=== PATIENT | male | born 1985 | race Caucasian/White ===

== ENCOUNTER → 2020-10-13 14:49 | Outpatient (CLI) | payer OTHER, SELFPAY ==
[2020-10-13 15:00] LABS: Basophils % 0.4 % (0.1-2.0); Eosinophils # 0.1 K/mm3 (0.0-0.4); Eosinophils % 1.5 % (0.1-12.0); Hematocrit 48.7 % (42.0-52.0); Hemoglobin 16.6 g/dL (14.1-18.0); Lymphocytes # 1.9 K/mm3 (0.7-4.5); Lymphocytes % 19.8 % (10-50); Mean Corpuscular HGB Conc 34.2 g/dL (31.8-35.4); Mean Corpuscular Hemoglobin 32.7 pg (27.0-31.2); Mean Corpuscular Volume 95.8 fl (80-94); Mean Platelet Volume 8.9 fl (7.4-10.4); Monocytes # 0.6 K/mm3 (0.1-1.0); Monocytes % 6.6 % (1.7-9.3); Neutrophils # 6.8 K/mm3 (1.8-7.8); Neutrophils % 71.8 % (37.0-80.0); Platelet Count 217 K/mm3 (142-424); Red Blood Count 5.08 M/mm3 (4.60-6.20); White Blood Count 9.4 K/mm3 (4.8-10.8)
[2020-10-13 15:09] LABS: Alanine Aminotransferase 22 U/L (12-78); Albumin Level 4.9 g/dl (3.5-5.0); Alkaline Phosphatase 73 U/L (38-126); Anion Gap 14.2 mEq/L (5-15); Aspartate Amino Transferase 37 U/L (17-59); Bilirubin,Total 0.4 mg/dl (0.2-1.3); Blood Urea Nitrogen 12 mg/dl (9-20); Calcium 9.6 mg/dl (8.4-10.2); Carbon Dioxide 25 mmol/L (22.0-30.0); Chloride 103 mmol/L (98-107); Estimated Glomerular Filt Rate 77 ml/min (>60); GFR (African American) 93 ML/MIN (>60); Globulin 2.5 g/dL (1.3-3.2); Glucose 100 mg/dl (74-100); HDL Cholesterol 66 mg/dl (40-60); Lipase 69 U/L (23-300); Potassium 4.2 mmoL/L (3.5-5.1); Sodium 138 mmol/L (136-145); Total Protein,Serum 7.4 g/dl (6.3-8.2)
[2020-10-13 15:12] LABS: Chol/HDL Ratio 2.5 (1-3.5); Cholesterol 162 mg/dl (140-200); Triglycerides 231 mg/dl (30-150); VLDL Cholesterol 46 mg/dL (0-40)
[2020-10-13 15:22] LABS: Direct LDL Cholesterol 58.43 mg/dL (100-129)
[2020-10-13 15:28] LABS: T4 (Thyroxine) 7.9 ug/dl (5.53-11.0)
[2020-10-13 15:42] LABS: Prostate Specific Ag Screen 0.8 ng/ml (0.0-4.0)
== END ==
PROVIDERS: Visit Provider Family Medicine
DX: S39.91XA Unspecified injury of abdomen, initial encounter (principal); Z12.5 Encounter for screening for malignant neoplasm of prostate; M54.5 Low back pain; R10.32 Left lower quadrant pain; N52.9 Male erectile dysfunction, unspecified
CPT/HCPCS: 80053; 80061; 83690; 84436; 84443; 85025; G0103

== ENCOUNTER → 2020-11-03 15:02 | Outpatient (CLI) | payer OTHER, SELFPAY ==
--- NOTE | 2020-11-03 15:08 | CT_ITS ---
PROCEDURE: CT ABDOMEN PELVIS WO CON CLINICAL INDICATION: LLQ pain COMPARISON: No exams were available for comparison TECHNIQUE: Axial images obtained with sagittal and coronal reformats. All CT scans at the facility use one or more dose reduction, viz: automated exposure control, ma/kV adjustment per patient size (including targeted exams where dose is matched to indication, i.e. head), or iterative reconstruction technique. FINDINGS: LOWER THORAX: No acute finding small nodular opacity is present in the region the right middle lobe at 7 x 4 mm and may be within the minor fissure and may represent a small lymph node. ABDOMEN & PELVIS: The liver and spleen have an unremarkable unenhanced CT appearance. The pancreas, adrenal glands, and kidneys have unremarkable unenhanced appearance. No renal or ureteral calculi. Gallbladder is contracted. No evidence of appendicitis. No intestinal obstruction or free air. No evidence of diverticulitis. There is a small metallic/calcific density in the left lower quadrant etiology indeterminate. Multiple unopacified bowel loops in the abdomen or pelvis which could obscure or mimic pathology. If symptoms persist, consider repeat exam with IV and oral contrast. No acute bony findings. IMPRESSION: 1. No acute finding. 2. Multiple unopacified bowel loops in the abdomen or pelvis which could obscure or mimic pathology. If symptoms persist, consider repeat exam with IV and oral contrast. Dictated by: John Henley MD 11/03/2020 15:33 John Henley MD in [place] 11/03/2020 15:33
== END ==
PROVIDERS: PCP Nurse Practitioner Family; Visit Provider Family Medicine
DX: R10.32 Left lower quadrant pain (principal)
CPT/HCPCS: 74176

== ENCOUNTER 2022-11-11 10:36 | Emergency (ER) | payer SELFPAY ==
--- NOTE | 2022-11-11 10:43 | XR_ITS ---
PROCEDURE INFORMATION: Exam: XR Left Ankle Exam date and time: 11/11/2022 11:02 AM Age: 37 years old Clinical indication: Injury or trauma; Fall; Blunt trauma; Lower leg; Left TECHNIQUE: Imaging protocol: Radiologic exam of the left ankle. Views: 3 or more views. COMPARISON: No relevant prior studies available. FINDINGS: Bones/joints: No visible fracture or dislocation. The mortise joint space is symmetric. Soft tissues: Prominent soft tissue edema overlying the lateral malleolus. IMPRESSION: 1. No visible fracture or dislocation. 2. Prominent soft tissue edema overlying the lateral malleolus.
--- NOTE | 2022-11-11 10:43 | XR_ITS ---
PROCEDURE INFORMATION: Exam: XR Left Tibia and Fibula Exam date and time: 11/11/2022 11:02 AM Age: 37 years old Clinical indication: Injury or trauma; Fall; Blunt trauma; Lower leg; Left TECHNIQUE: Imaging protocol: Radiologic exam of the left tibia and fibula. Views: 2 views. COMPARISON: No relevant prior studies available. FINDINGS: Bones/joints: No visible fracture or dislocation. Soft tissues: Normal. IMPRESSION: No visible fracture or dislocation.
--- NOTE | 2022-11-11 10:43 | XR_ITS ---
PROCEDURE INFORMATION: Exam: XR Left Foot Exam date and time: 11/11/2022 11:02 AM Age: 37 years old Clinical indication: Injury or trauma; Fall; Blunt trauma; Lower leg; Left TECHNIQUE: Imaging protocol: Radiologic exam of the left foot. Views: 3 or more views. COMPARISON: No relevant prior studies available. FINDINGS: Bones/joints: No visible fracture or dislocation. Soft tissues: Normal. IMPRESSION: No visible fracture or dislocation.
--- NOTE | 2022-11-11 10:45 | ECG_ITS ---
APPROVED REPORT Exam: Resting ECG HR:82 bpm ECG Measurements Heart Rate 82 AXES PA 148 P 61 QRSd 94 QRS 76 QT 327 T 52 QTc 366 Conclusion SINUS RHYTHM NORMAL ECG UNCONFIRMED REPORT Electronically signed by : Joshua Nicholson MD 11/12/2022 20:35:30
[2022-11-11 10:47] VITALS: BP 129/73; PULSE 81; RESP 16; O2SAT 98
[2022-11-11 11:00] VITALS: BP 129/79; PULSE 73; RESP 16; O2SAT 96
[2022-11-11 11:19] VITALS: BP 129/73; PULSE 82; RESP 20; TEMP 37.1; O2SAT 96; BMI 21.4
[2022-11-11 11:30] VITALS: BP 137/76; PULSE 70; O2SAT 99
--- NOTE | 2022-11-11 11:32 | PC.NURSE ---
sg rounding on pt
[2022-11-11 12:00] VITALS: BP 142/85; PULSE 82; RESP 16; O2SAT 99
--- NOTE | 2022-11-11 12:48 | PC.NURSE ---
Derick.Harper rounded on patient
--- NOTE | 2022-11-11 12:50 | [facility].EDGENADL ---
Discharge Plan Disposition Patient Disposition: Home, Self-Care Condition: Fair Prescriptions Prescriptions: No Action ciprofloxacin HCl [Cipro] 500 mg tablet 500 mg PO BID Qty: 20 0RF metronidazole [Flagyl] 500 mg tablet 500 mg PO TID Qty: 30 0RF sildenafil [Viagra] 100 mg tablet 100 mg PO DAILY PRN (Reason: sexual activity) Qty: 10 10RF Rx Instructions: administer 30 minutes to 4 hours before activity Referrals Follow up/Referrals: Provider,Referral, MD [Primary Care Provider] - See instructions Clinical Impressions Clinical Impression: Severe sprain of left ankle Instructions Patient Instructions: DI for Ankle Sprain Discharge ED Provider: Marty Baig General Adult HPI General Chief complaint: Syncope Stated complaint: passed out 11/11, left ankle pain Time Seen by Provider: 11/11/22 10:45 Mode of Arrival: Ambulatory Source of Information: Patient Limitations: No Limitations Description of Symptoms (Recalled from ER Triage Doc. by RN): pt to ed c/o syncopal episode yesterday. pt states he passed out yeterday while on the mower and when he came to he had pain in his left ankle and foot. pt reporrs he has a small lesion to the back of his ankle. History of Present Illness HPI narrative: Patient is a 37-year-old male with no pertinent past medical history who presents with left ankle pain. He says yesterday he was using a mower when he started to get very lightheaded and felt warm and then passed out. He says that he ran his mower into another piece of equipment and pinned his ankle briefly. He says that he has had a hard time ambulating since then due to pain. He says that his ankle is very swollen. Denies any numbness or tingling. He has not had any more syncopal events. Denies any chest pain during the episode. Denies any shortness of breath. Related Data Previous Rx's Medication Instructions Recorded ciprofloxacin HCl 500 mg tablet 500 mg PO BID #20 tabs 10/13/20 (Cipro) metronidazole 500 mg tablet 500 mg PO TID #30 tabs 10/13/20 (Flagyl) sildenafil 100 mg tablet (Viagra) 100 mg PO DAILY PRN sexual 10/13/20 activity #10 tabs Allergies Allergy/AdvReac Type Severity Reaction Status Date / Time No Known Allergies Allergy Verified 10/13/20 12:56 [facility] Disclaimer: The information contained in this section may have been updated after the patient was seen, as this information can be updated by other users. Social History Smoking Status: Never smoker alcohol intake: never substance use type: denies use current occupational status: employed Travel in the last 8 weeks: None ROS Obtained: Yes All systems reviewed & no additional complaints except as documented Physical Exam General General appearance: alert and in no apparent distress Head Head exam: atraumatic, normocephalic and normal inspection Eye Eye exam: Present normal appearance and PERRL ENT ENT exam: Present normal exam, mucous membranes moist and normal external ear exam Neck Neck exam: Present normal inspection and trachea midline Chest Chest inspection: Present normal inspection and symmetric chest wall rise Respiratory Respiratory exam: Present normal lung sounds bilaterally; Absent respiratory distress Cardiovascular Cardiovascular exam: Present regular rate and normal rhythm Abdominal Exam Abdominal exam: Present soft; Absent distention, tenderness or guarding Extremities Exam Extremities exam: Present normal inspection; Absent edema Neurological Exam Neurological exam: Present alert and oriented X3 Psychiatric Psychiatric exam: Present normal affect and normal mood Skin Skin exam: Present warm, dry, intact and normal color Medical Decision Making Medical Records Medical records reviewed: Yes I reviewed the patient's medical records. Magdiel Inquiry Pt receiving controlled substance: Yes Magdiel was queried for this patient: No Risks and benefits of using a co
[2022-11-11 13:15] VITALS: BP 132/79; PULSE 92; RESP 18; TEMP 37.1; O2SAT 97
== END 2022-11-11 13:16 | disposition home or self-care (01) ==
PROVIDERS: Emergency Provider Student in an Organized Health Care Education/Training Program
DX: S93.402A Sprain of unspecified ligament of left ankle, initial encounter (principal); W20.8XXA Other cause of strike by thrown, projected or falling object, initial encounter; R55 Syncope and collapse
CPT/HCPCS: 73590; 73610; 73630; 93005; 96360; 99285

== ENCOUNTER 2024-02-04 10:36 | Emergency (ER) | payer OTHER, SELFPAY ==
--- NOTE | 2024-02-04 10:56 | ED_ITS ---
Discharge Plan Disposition Patient Disposition: Home, Self-Care Condition: Good Prescriptions Prescriptions: New methylprednisolone 4 mg Tablets,Dose Pack 4 mg PO DIRECTED 6 Days Qty: 21 0RF Rx Instructions: Take 1 pack as directed for 6 days [id number] [Bromfed DM] 2-30-10 mg/5 mL Syrup 5 ml PO Q6H PRN (Reason: Cough) Qty: 240 0RF amoxicillin-pot clavulanate 875-125 mg Tablet 1 tab PO Q12H Qty: 20 0RF No Action ciprofloxacin HCl [Cipro] 500 mg tablet 500 mg PO BID Qty: 20 0RF metronidazole [Flagyl] 500 mg tablet 500 mg PO TID Qty: 30 0RF sildenafil [Viagra] 100 mg tablet 100 mg PO DAILY PRN (Reason: sexual activity) Qty: 10 10RF Rx Instructions: administer 30 minutes to 4 hours before activity Referrals Follow up/Referrals: Provider,Referral, MD [Primary Care Provider] - See instructions Activity Restrictions/Add. Instructions Additional Instructions/Restrictions: Drink plenty of fluids. Take tylenol or ibuprofen for pain or fever. Take the medications as directed. Follow up with your regular doctor. GO TO THE ER FOR ANY WORSENING SYMPTOMS Throw your tooth brush away and get a new one. Clinical Impressions Clinical Impression: Strep throat Stand Alone Forms Stand Alone Forms: Work/School Release Instructions Patient Instructions: Strep Throat, DI for Strep Throat Discharge ED Provider: Pal Mendez [facility] [place] HPI General Stated complaint: sore throat Time Seen by Provider: 02/04/24 10:56 History of Present Illness Provider Complaint: He states that for the past 2 days he has had a very sore throat, low grade fever, chills, and a dry cough. His daughter was diagnosed with strep throat yesterday. Related Data Previous Rx's Medication Instructions Recorded ciprofloxacin HCl 500 mg tablet 500 mg PO BID #20 tabs 10/13/20 (Cipro) metronidazole 500 mg tablet 500 mg PO TID #30 tabs 10/13/20 (Flagyl) sildenafil 100 mg tablet (Viagra) 100 mg PO DAILY PRN sexual 10/13/20 activity #10 tabs amoxicillin 875 mg-potassium 1 tab PO Q12H #20 tabs 02/04/24 clavulanate 125 mg tablet [id number]-[id number] 5 ml PO Q6H PRN Cough #240 mL 02/04/24 2 mg-30 mg-10 mg/5 mL oral syrup (Bromfed DM) methylprednisolone 4 mg tablets in 4 mg PO DIRECTED 6 days #21 tabs 02/04/24 a dose pack Allergies Allergy/AdvReac Type Severity Reaction Status Date / Time No Known Allergies Allergy Verified 02/04/24 11:05 [facility] Disclaimer: The information contained in this section may have been updated after the patient was seen, as this information can be updated by other users. Social History Smoking Status: Never smoker alcohol intake: never substance use type: denies use current occupational status: employed Travel in the last 8 weeks: None ROS Obtained: Yes All systems reviewed & no additional complaints except as documented Constitutional Constitutional: Reports chills and Reports fever(s) Eyes Eyes: Denies eye discharge ENT Ears, Nose, Mouth, and Throat: Reports as per HPI Cardiovascular Cardiovascular: Denies chest pain Respiratory Respiratory: Denies chest congestion and Reports cough Gastrointestinal Gastrointestingal: Reports nausea; Denies abdominal pain, constipation, cramping, diarrhea or vomiting Musculoskeletal Musculoskeletal: Denies arthralgias Integumentary/Breasts Skin/Breast: Denies rash Neurologic Neurologic: Denies paresthesias Physical Exam General General appearance: alert and in no apparent distress Head Head exam: atraumatic, normocephalic and normal inspection Eye Eye exam: Present normal appearance, PERRL and EOMI ENT ENT exam: Present mucous membranes moist and normal external ear exam Expanded ENT Exam TM/Canal exam: Bilateral TM: erythema and bulging Nose exam: Absent sinus tenderness Mouth exam: Present normal external inspection; Absent drooling Teeth exam: Present normal inspection Throat exam: Present tonsillar erythema, tonsillomegaly and tonsillar exudate Neck Neck exam: Present normal inspection, full ROM and trachea midline; Absent te nderness, meningismus or lymphadenopathy Chest Chest inspection: Present normal inspection and symmetric chest wall rise; Absent tenderness Respiratory Respiratory exam: Present normal lung sounds bilaterally; Absent respiratory distress, wheezes, stridor or accessory muscle use Cardiovascular Cardiovascular exam: Present regular rate and normal rhythm; Absent systolic murmur or diastolic murmur Abdominal Exam Abdominal exam: Present soft and normal bowel sounds; Absent distention, tenderness, guarding, rebound or rigidity Extremities Exam Extremities exam: Present normal inspection and normal capillary refill; Absent calf tenderness Back Exam Back exam: Present normal inspection and full ROM; Absent tenderness, CVA tenderness (R) or CVA tenderness (L) Neurological Exam Neurological exam: Present alert, oriented X3 and CN II-XII intact Psychiatric Psychiatric exam: Present normal affect and normal mood Skin Skin exam: Present warm, dry, intact and normal color Medical Decision Making Medical Records Medical records reviewed: No I reviewed the patient's medical records. Magdiel Inquiry Pt receiving controlled substance: No Lab Data Lab results reviewed: Yes I reviewed the patient's lab results.
[2024-02-04 11:03] VITALS: BP 153/87; PULSE 65; RESP 16; TEMP 37.4; O2SAT 99; BMI 23.3
[2024-02-04 11:08] LABS: UTC Strep Screen (Rapid) Negative (Negative)
[2024-02-04 12:04] VITALS: BP 153/87; PULSE 65; RESP 16; TEMP 37.4; O2SAT 99
== END 2024-02-04 12:05 | disposition home or self-care (01) ==
PROVIDERS: Emergency Provider Nurse Practitioner Family
DX: J02.0 Streptococcal pharyngitis (principal); R50.9 Fever, unspecified; R05.9 Cough, unspecified; R07.0 Pain in throat
CPT/HCPCS: 87880; 99204; 99212; G0463